=== PATIENT | male | born 1980 | race Caucasian/White ===

== ENCOUNTER 2024-05-28 11:21 | Day surgery (SDC) | payer OTHER, SELFPAY ==
[2024-05-28] VITALS (16 sets, daily range): BP systolic 122–153; BP diastolic 70–99; PULSE 45–64; RESP 14–24; TEMP 36.1–36.7; O2SAT 97–100; BMI 29.6
[2024-05-28] MEDS: OXYMETAZOLINE 0.05% NASAL SPRAY 2 SPRAY NOSTRIL-B (11:16)
--- OUTSIDE RECORDS SUMMARY | 2024-05-28 11:25 | XMS_ITS | Clinical Summary ---
Author Organization [facility] Address [place], [place] [address] Care Team Providers Care Nylon Operator Name Role Phone Navdeep Amato MD Primary Care Provider [phone] Allergies Active Allergy Reactions Criticality Noted Date Comments Duloxetine Insomnia 04/28/2023 Varenicline Anxiety 10/19/2010 Medications Medication Sig Dispensed Refills Start Date End Date Status fexofenadine (Cira Allergy) 180 mg tablet Take 180 mg by mouth once daily with a meal. Do not crush or chew. 0 04/16/2022 Active fluticasone (50 mcg per actuation) nasal solution (FLONASE)Indications :Other chronic sinusitis,Acute recurrent maxillary sinusitis Inhale 2 Sprays to both nostrils once daily. 16 mL 8 07/25/2023 Active albuterol HFA (Ventolin HFA) 90 mcg/actuation inhalerIndications:A sthma, unspecified asthma severity, unspecified whether complicated, unspecified whether persistent Inhale 2 Puffs by mouth every 4 hours if needed for Shortness Of Breath. 36 Each 4 07/25/2023 Active PARoxetine (PAXIL) 10 mg tabletIndications:Ot her depression Take 1 Tablet (10 mg) by mouth every morning. 90 Tablet 3 07/25/2023 Active Active Problems Problem Noted Date Diagnosed Date Severe depression 12/31/2023 Depression 05/20/2023 Alcohol use disorder in remission 05/20/2023 Attention deficit hyperactivity disorder (ADHD) 05/20/2023 Status post catheter ablation of atrial fibrilla tion 12/30/2021 Atrial fibrillation 12/26/2021 Class 1 obesity due to excess calories in adult 02/06/2018 NIKITA (obstructive sleep apnea) 02/06/2018 Allergic rhinitis 01/22/2018 HLA B27 positive 09/25/2009 Overview: He has the gene for anklylosing spondylitis. Navdeep Amato MD signed electronically .................... 09/25/2009 Unspecified asthma(493.90) Rectal bleeding Resolved Problems Problem Noted Date Diagnosed Date Resolved Date Depression with anxiety 04/08/2023 080 10/2022 Overview: He took Wellbutrin in the past for 1 month. His Anxiety got worse on that but he was also in a very stressful work situation that made his Anxiety worse. He would try that again. He took Prozac (Fluoxetine) this led to obsessive-compulsive thoughts. He would not take again. He did not tolerate Mirtazapine. He would not take again. Anxiety with depression 02/19/2023 080 10/2022 Allergic rhinitis, cause unspecified 02/06/2018 Encounters Date Type Department Care Team Description 05/24/2024 3:30 PM CDT Office Visit [facility] [address] [place] [address] Shashi Alcantara MD Preoperative Exam (Deviated septum fixed 05/28/24 at [facility] [address] [facility]) 05/24/2024 Travel from Last 3 Months Immunizations Name Administration Dates Next Due COVID-19 vaccine (Moderna 100mcg/0.5mL) PF, MDV 08/29/2021,01/31/2021,01/03/2021 DTaP 03/30/1986,02/28/1982 Influenza Virus, Unspecified 10/07/2018 Influenza, IIV3 (Age 6-35 mos) 08/08/2015 Influenza, IIV4 07/25/2023, 2,07/31/2021,2019,09/15/2018 MMR 11/29/1981 Polio Virus, Unspecified 03/30/1986,02/28/1982 Td (Age >=7 Years) 06/08/2010,03/16/2003 Tdap 08/11/2015 Family History Medical History Relation Name Comments Diabetes type II Father Obesity Father Other Father Non alcoholic f atty liver disease Hypertension Maternal Grandfather Cancer-colon Maternal Uncle diagnosed 57 yo Other Mother DVT in leg Heart Disease Paternal Grandfather o f heart disease in mid 60s Other Paternal Grandfather anklylo sing spondylitis Diabetes type II Sister Relation Name Status Comments Brother Alive Father Alive Maternal Grandfather Maternal Uncle Mother Alive Paternal Grandfather Sister Alive Social History Tobacco Use Types Packs/Day Years Used Date Smoking Tobacco: Former Cigarettes 0.5 11 2 003 - 2014 Smokeless Tobacco: Former Quit: 05/03/2014 Tobacco Cessation:Counseling Given: Not Answered Alcohol Use Standard Drinks/Week Comments Not Currently 0 (1 standard drink = 0.6 oz pur e alcohol) PHQ-2 Answer Date Recorded PHQ-2 TOTAL SCORE 1 07/25/2023 Social Connections Answer Date Recorded Frequency of Communication with Friends and Fami ly 4 05/24/2024 Financial Resource Strain Answer Date R ecorded Difficulty of Paying Living Expenses 3 05/24/2024 Difficulty of Paying Living Expenses Not on file 05/24/2024 Food Insecurity Answer Date Recorded Worried About Running Out of Food in the Last Ye ar 1 05/24/2024 Transportation Needs Answer Date Record ed Lack of Transportation (Medical) 1 05/24/2024 Housing Stability Answer Date Recorded Unable to Pay for Housing in the Last Year 1 05/24/2024 Sex and Gender Information Value Date Recorded Sex Assigned at Not on file Gender Identity Not on file Sexual Orientation Not on file Obstetrics History Last Filed Vital Signs Vital Sign Reading Time Taken Comments Blood Pressure 111/74 05/24/2024 3:29 PM CDT Pulse 61 05/24/2024 3:29 PM CDT Temperature 36.6 ??C (97.8 ??F) 01/30/2024 1:56 PM CD T Respiratory Rate 16 12/26/2021 12:38 PM [employer]PRESENT[employer]IVE Oxygen Saturation 100% 05/24/2024 3:29 PM CDT Inhaled Oxygen Concentration - - Weight 101.8 kg (224 lb 8 oz) 05/24/2024 3:29 PM CDT Height 185.4 cm (6' 1) 01/30/2024 1:56 PM CDT Body Mass Index 29.62 01/30/2024 1:56 PM CDT Plan of Treatment Health Maintenance Due Date Last Done Comments HIV for age 15-65 1995 Hepatitis C screening for age 18-79 1998 COVID-19 vaccine series (2022-24 season) 2023 09/01/2022, 08/29/2021, 01/31/2021, Additional history exists Influenza for age 9-49 06/20/2024 , 09/01/2022, 07/31/2021, Additional history exists Depression screening for age 12+ 07/25/2024 07/25/2023, 06/25/2023, 06/24/2023, Additional history exists BMI (ht and wt on same day) for age 18+ 01/29/2025 01/30/2024, 07/25/2023, 04/11/2023, Additional history exists Tetanus booster 08/11/2025 08/11/2015, 05/21, 03/16/2003 Lipids for age 35-44 08/05/2028 08/05/2023, 07/31/2021, 05/10/2016, Additional history exists Tdap Completed 08/11/2015 Pneumococcal series for age 6-64 Aged Out No longer eligible based on patient's age to complete this topic Procedures Procedure Name Priority Date/Time Associated Diagnosis Comments LIPID PANEL W REFLEX MEASURED LDL Routine 08/05/2023 7:28 AM CDT Lipid screening from Last 3 Months or Most Recently Relevant to Health Maintenance Results * (ABNORMAL) LIPID PANEL W REFLEX MEASURED LDL (08/05/2023 7:28 AM CDT) CHOLESTEROL,TOTAL 192 100 - 199 mg/dL 08/05/2023 2:02 PM CDT [facility] Comment: Cholesterol, Total Reference Ranges Desirable <200 mg/dL Borderline 200-239 mg/dL High >=240 mg/dL TRIGLYCERIDES 56 <150 mg/dL 08/05/2023 2:02 PM CDT [facility] HDL CHOLESTEROL 45 >40 mg/dL 2:02 PM CDT [facility] NON-HDL CHOLESTEROL 147(H) <145 mg/dl 08/05/2023 2:02 PM CDT [facility] CHOL/HDL RATIO 4.27 <4.50 08/05/2023 2:02 PM CDT [facility] LDL CHOLESTEROL 136(H) <=130 mg/dL 08/05/2023 2:02 PM CDT [facility] VLDL CHOLESTEROL 11 <=30 mg/dL 08/05/2023 2:02 PM CDT [facility] PROVIDER ORDERED STATUS RANDOM 08/05/2023 2:02 PM CDT [facility] Blood BLOOD SPECIMEN / Unknown Venipuncture / Unknown 08/05/2023 7:28 AM CDT 08/05/2023 7:28 AM CDT Navdeep Amato MD CHEMISTRY Performing Organization Address City/State/[facility] Co de Phone Number [facility] [address] [place] [address], from Last 3 Months or Most Recently Relevant to Health Maintenance Advance Directives * Full Code (Latest Code Status on File) Date Activated Date Inactivated Comments 12/26/2021 11:20 AM 12/26/2021 6:40 PM Question Answer Comments Code Status Discussion: Other * Full Code Date Activated Date Inactivated Comments 03/06/2018 11:38 AM 03/06/2018 4:06 PM Question Answer Comments Code Status Discussion: Discussed Care Teams Nylon Operator Relationship Specialty Start Date End Date Navdeep Amato MD [address] [place] [address] PCP - General Family Practice 11/16/21
[2024-05-28] MEDS: SODIUM CHLORIDE 0.9 % (FLUSH) 10 ML SYRINGE IVF (11:45)
[2024-05-28] MEDS: LACTATED RINGERS 1000 ML 1,000 ML 35 ML IV (11:45)
[2024-05-28] MEDS: BUPIVACAINE 0.5 %/EPI 1:200K 30 ML INJECTION (13:10)
[2024-05-28] MEDS: COCAINE HCL 4 % 4 ML SOLUTION NOSTRIL-B (13:10)
[2024-05-28] MEDS: AYR SALINE NASAL GEL 1 APPLIC NOSTRIL-B (13:10)
[2024-05-28] MEDS: MUPIROCIN 1 GM PACKET 1 APPLIC TOPICAL (13:10)
--- NOTE | 2024-05-28 13:18 | P.ENTPROC_ITS ---
Procedure Note Date of procedure: 05/28/24 Procedure: Preoperative diagnosis deviated septum nasal obstruction right inferior turbinate hypertrophy, uvular hypertrophy with gagging Postoperative diagnosis same Procedure nasal septoplasty, submucous partial resection right inferior turb inate, excision of lower 3rd of the uvula Under general trach anesthesia patient was prepped and draped usual fashion nose decongested injected. A right hemitransfixion incision was made. Left anterior posterior tunnels were created. A vertical incision was made through the cartilage and a right posterior tunnel created. The posterior deflected portions of septal bone and cartilage were resected and 2 large pieces trimmed returned to intraseptal space. Hemitransfixion was closed with 2 4-0 chromic sutures. Silastic stents were secured with 3-0 nylon. A stab incision was made in the anterior of the right inferior turbinate a tunnel created with a Mac dissector. The alfredo bone was outfractured a conservative anterior submucous resection performed. The Coblation Wand was used to cauterize intramurally along the inferior 10%. The McIvor mouth gag was inserted the tongue retracted forward. The uvula was markedly enlarged approximately 8 times normal size. The lower 3rd was amputated with needlepoint cautery. There was no bleeding. Total blood loss for the procedure was 15 mL. There were no complications. The patient was extubated the operating taken recovery in satisfactory condition. Surgeon: Noam Gomez MD
--- NOTE | 2024-05-28 13:29 | W.ANESCHARGE ---
Anesthesia Charges Start Date/Time Anesthesia Start Date: 05/28/24 Anesthesia Start Time: 12:29 Stop Date/Time Anesthesia Stop Date: 05/28/24 Anesthesia Stop Time: 13:28
[2024-05-28] MEDS: fentaNYL 100 MCG/2 ML inj 50 MCG IVP (13:42)
--- NOTE | 2024-05-28 13:46 | W.ANESCHARGE ---
Anesthesia Charges Start Date/Time Anesthesia Start Date: 05/28/24 Anesthesia Start Time: 12:29 Stop Date/Time Anesthesia Stop Date: 05/28/24 Anesthesia Stop Time: 13:28
--- NOTE | 2024-05-28 14:15 | SUR.PHASEII ---
pt reports head pain 5/10, throat pain 8/10. Pt taking sips of water. Offered pill of Tylenol and Ibuprofen, pt declined at this time.
[2024-05-28] MEDS: ACETAMINOPHEN 160 MG/5 ML CUP 325 MG PO (14:53)
[2024-05-28] MEDS: ONDANSETRON 2 MG/ML inj 4 MG IVP (14:53)
[2024-05-28] MEDS: IBUPROFEN 100 MG/5 ML SUSP 200 MG PO (14:53)
[2024-05-28] MEDS: OXYCODONE 1 MG/ML ORAL SOLN 5 MG PO (14:53)
[2024-05-28] MEDS: LACTATED RINGERS 1000 ML 1,000 ML 100 ML IV (14:56)
== END 2024-05-28 16:20 | disposition home or self-care (01) ==
LOC: OR 11:22
PROVIDERS: PCP Family Medicine; Visit Provider Otolaryngology
PROC: (CPT 30520; principal; 2024-05-28 12:30)
DX: J34.2 Deviated nasal septum (principal); J34.3 Hypertrophy of nasal turbinates; K13.79 Other lesions of oral mucosa
CPT/HCPCS: 30520; 30140; 42104; 00160; A9270; J0330; J1100; J2250; J2405; J2704; J3010; J3490; J7120